=== PATIENT | female | born 1980 | race American Indian/Alaskan Native ===

== ENCOUNTER 2017-12-17 11:02 | Emergency (ER) | payer SELFPAY ==
--- NOTE | 2017-12-17 13:14 | Emergency Department Report ---
ED Laceration HPI - HPI Chief Complaint: Wound/Laceration Stated Complaint: RIGHT HAND LACERATION Time Seen by Provider: 12/17/17 12:37 Occurred When: Today Location: Upper Extremity (right hand) Severity: moderate Tetanus Status: Up to Date (11/2016 at [facility]) Laceration Symptoms: Yes Pain, No Foreign Body Sensation, No Numbness, No Weakness Other History: This is a 37 y.o. female that presents with laceration to right hand today. She was cutting chicken at home about 3 hours ago and cut hand. She washed with soap and water, then rinsed with peroxide. Reports getting a tetanus vaccine 11/2016 at [facility]. Denies numbness, tingling, swelling, or foreign object. ED Review of Systems ROS: Stated complaint: RIGHT HAND LACERATION Other details as noted in HPI Constitutional: denies: chills, fever Respiratory: denies: cough, shortness of breath, wheezing Cardiovascular: denies: chest pain, palpitations Gastrointestinal: denies: abdominal pain, nausea, diarrhea Musculoskeletal: denies: back pain, joint swelling, arthralgia Skin: other (laceration to right palm of hand). denies: rash, lesions Neurological: denies: headache, weakness, numbness, paresthesias ED Past Medical Hx - Past Medical History Hx Hypertension: Yes - Surgical History Past Surgical History?: No - Social History Smoking Status: Never Smoker Substance Use Type: None - Medications Home Medications: Home Medications Medication Instructions Recorded Confirmed Last Taken Type Sulfamethoxazole/Trimethoprim 1 each PO BID 10 Days #20 tablet 12/17/17 Unknown Rx [Bactrim DS TAB] Laceration Physical Exam - Exam General: Vital signs noted. No distress. Alert and acting appropriately. Wound Length (cm): 3 Laceration Location: Upper Extremity (right proximal hines region, no tendon/ vessel) Laceration Exam: Yes Normal Distal CMS, No Foreign Body, No Exposed Tendon, Vessel, or Nerve, No Tendon Injury ED Course Vital Signs 12/17/17 11:06 Temperature 99.1 F Pulse Rate 99 H Respiratory 16 Rate Blood Pressure 165/107 O2 Sat by Pulse 98 Oximetry - Laceration /Wound Repair Right Proximal Palm Hand Wound Location: upper extremity (right proximal palmar) Wound Length (cm): 3 Wound's Depth, Shape: superficial, linear Wound Explored: clean Irrigated w/ Saline (ccs): 10 Betadine Prep?: Yes Anesthesia: 1% Lidocaine Volume Anesthetic (ccs): 2 Wound Repaired With: sutures Suture Size/Type: 5:0 Number of Sutures: 5 Layer Closure?: No ED Medical Decision Making - Medical Decision Making This is a 37 y.o. female presents with laceration to proximal palmar region of right hand. She was cutting chicken at home and cut hand 3 hours ago. Patient examined by me. Physical exam findings of 3 cm superficial laceration, no tendon or vessel exposure. Patient is non-toxic appearing and stable. Sutures placed x 5. Review suture note. Discharged home for outpatient treatment with bactrim. Discussed ER care plan with patient. Patient agreed with plan. F/U with PCP or ER in 5-7 days for suture removal. Given instructions on suture care. Critical care attestation.: If time is entered above; I have spent that time in minutes in the direct care of this critically ill patient, excluding procedure time. ED Disposition Clinical Impression: Laceration Hypertension Qualifiers: Hypertension type: essential hypertension Qualified Code(s): I10 - Essential ( primary) hypertension Disposition: TO HOME OR SELFCARE Is pt being admited?: No Does the pt Need Aspirin: No Condition: Stable Instructions: Suture Care (ED), Laceration (ED), Hypertension (ED) Additional Instructions: Take bactrim DS antibiotic as prescribed for the full course. Avoid over use of right hand and prop arm up on pillows to decrease swelling. Follow up with Primary Care Provider in 24-72 hours. Have sutures removed in 5-7 days at primary care provider or ER. Return to ER if red, swollen, foul discharge, or fever. Prescriptions: Sulfamethoxazole/Trimethoprim [Bactrim DS TAB] 1 each PO BID 10 Days #20 tablet Referrals: [facility] [Outside] - 3-5 Days [facility] [Outside] - 3-5 Days [facility] [Outside] - 3-5 Days Time of Disposition: 13:57 Print Language: ROMANSH
[2017-12-17] MEDS ORDERED: XYLOCAINE 1% MPF 5 mL ONE (13:30)
[2017-12-17] MEDS ORDERED: XYLOCAINE 1% MPF 5 mL INFILTRATI ONE (13:57)
[2017-12-17 14:09] VITALS: BP 142/96
== END 2017-12-17 14:18 | disposition home or self-care (01) ==
LOC: ED 11:02
DX: S61.411A Laceration without foreign body of right hand, initial encounter (principal); I10 Essential (primary) hypertension; W45.8XXA Other foreign body or object entering through skin, initial encounter; Y93.89 Activity, other specified; Y92.098 Other place in other non-institutional residence as the place of occurrence of the external cause; Y99.8 Other external cause status
CPT/HCPCS: 99282

== ENCOUNTER 2017-12-21 10:20 | Emergency (ER) | payer SELFPAY ==
[2017-12-21 11:05] LABS: Basophils # (Auto) 0.1 K/mm3 (0.0-0.1); Basophils % (Auto) 0.4 % (0.0-1.8); Eosinophils # (Auto) 0.1 K/mm3 (0.0-0.4); Eosinophils % (Auto) 0.9 % (0.0-4.3); Hematocrit 43.8 % (30.3-42.9); Hemoglobin 14.6 gm/dl (10.1-14.3); Lymphocytes # (Auto) 1.5 K/mm3 (1.2-5.4); Lymphocytes % (Auto) 12.5 % (13.4-35.0); Mean Corpuscular HGB Conc 33 % (30-34); Mean Corpuscular Hemoglobin 28 pg (28-32); Mean Corpuscular Volume 83 fl (79-97); Monocytes # (Auto) 0.6 K/mm3 (0.0-0.8); Monocytes % (Auto) 4.6 % (0.0-7.3); Platelet Count 262 K/mm3 (140-440); Red Blood Count 5.27 M/mm3 (3.65-5.03); Red Cell Distribution Width 12.4 % (13.2-15.2)
[2017-12-21 11:15] LABS: Bilirubin,Urine NEG (Negative); Blood,Urine SM (Negative); Color,Urine Colorless (Yellow); Mucus,Urine FEW /HPF; Protein,Urine <15 mg/dL mg/dL (Negative); Urobilinogen,Urine < 2.0 mg/dL (<2.0)
[2017-12-21 11:27] LABS: BUN/Creatinine Ratio 14; Blood Urea Nitrogen 13 mg/dL (7-17); Calcium 9.5 mg/dL (8.4-10.2); Hemolysis Index 80
[2017-12-21] MEDS ORDERED: NACL 0.9% 1000 ML 1,000 ML ONE (11:31)
[2017-12-21] MEDS ORDERED: K-DUR PO ONE (11:33)
[2017-12-21] MEDS ORDERED: NACL 0.9% 1000 ML 1,000 ML IV ONE ×2 (11:33→13:22)
--- NOTE | 2017-12-21 14:26 | Emergency Department Report ---
HPI - General Chief Complaint: Hyperglycemia Time Seen by Provider: 12/21/17 11:29 - HPI HPI: The patient is a 37-year-old female with a history of diabetes whom presents for evaluation of lightheadedness. The patient reports severe lightheadedness for the past one day, exacerbated with exertion or ambulation, and improved with lying down and rest. She also reports associated dryness of mouth and polyuria. The patient denies fever, head injury, headache, neck pain, neck stiffness, vision or hearing changes, smell or taste changes, paresthesias, facial drooping, slurred speech, seizure-like activity, chest pain, dyspnea, urine or bowel incontinence or retention, or other focal neurological deficit. ED Past Medical Hx - Past Medical History Hx Hypertension: Yes Additional medical history: PCOS - Surgical History Past Surgical History?: No - Social History Smoking Status: Never Smoker Substance Use Type: None - Medications Home Medications: Home Medications Medication Instructions Recorded Confirmed Last Taken Type Sulfamethoxazole/Trimethoprim 1 each PO BID 10 Days #20 tablet 12/17/17 Unknown Rx [Bactrim DS TAB] ED Review of Systems ROS: Stated complaint: BLOOD SUGAR HIGH Other details as noted in HPI Constitutional: reports lightheadedness denies: fever ENT: denies: throat or neck pain Respiratory: denies: cough, shortness of breath Cardiovascular: denies: chest pain Endocrine: denies unexplained weight loss or gain Gastrointestinal: denies: abdominal pain, nausea Genitourinary: denies: dysuria Musculoskeletal: denies: leg swelling Skin: denies: rash Neurological: denies: headache Hematological/Lymphatic: denies: easy bleeding or easy bruising Psych: denies sadness or hopelessness Physical Exam - Physical Exam Vital Signs: Vital Signs 12/21/17 10:41 Temperature 99.4 F Pulse Rate 102 H Respiratory 20 Rate Blood Pressure 152/103 O2 Sat by Pulse 97 Oximetry Physical Exam: General: well-nourished, well-developed, no acute distress Head: Normocephalic, atraumatic Eyes: normal sclera ENT: Mucous membranes are pale and dry Neck: No neck stiffness, no cervical adenopathy Respiratory: Breath sounds equal bilaterally, no wheezing, rales, or rhonchi Cardio: S1 and S2 present, no murmurs, rubs, gallops, capillary refill is delayed Abdomen: Normoactive bowel sounds, soft abdomen, no rigidity, no guarding or rebound tenderness Chest WALL/Back: No tenderness to palpation of the chest wall, no CVA tenderness with percussion Musc: No pitting edema Skin: No rash Neuro: no facial drooping, normal speech Psych: Normal affect ED Course Vital Signs 12/21/17 10:41 Temperature 99.4 F Pulse Rate 102 H Respiratory 20 Rate Blood Pressure 152/103 O2 Sat by Pulse 97 Oximetry ED Medical Decision Making - Lab Data Result diagrams: 12/21/17 10:53 12/21/17 10:53 - Medical Decision Making \ The patient was seen and examined by myself. The patient is placed on a air sampling and monitoring and continuous pulse ox. On initial evaluation, the patient was found to be in no distress. Evaluation orders are placed. IV access is established and the patient is given 1 liter normal saline fluid bolus for treatment of her dehydration and hyperglycemia. Lab results exhibited elevated glucose of 600, with normal potassium level, joshua pH level, and bicarbonate level , not consistent with DKA. The patient is given multiple IV insulin boluses and an additional normal saline fluid bolus. On reevaluation the patient's found to have decrease in blood sugar from 600-200, and the patient is asymptomatic. The patient is stable for discharge with outpatient follow-up. The patient is given follow-up and return instructions. The patient expressed understanding and agreed with the plan. The patient is discharged in stable condition. Critical care attestation.: If time is entered above; I have spent that time in minutes in the direct care of this critically ill patient, excluding procedure time. ED Disposition Clinical Impression: Acute hyperglycemia, Dehydration, Orthostatic dizziness Disposition: - TO HOME OR SELFCARE Is pt being admited?: No Does the pt Need Aspirin: No Condition: Stable Instructions: Diabetic Hyperglycemia (ED), Dehydration (ED) Referrals: PRIMARY CARE, [Primary Care Provider] - 3-5 Days [facility] [Outside] - 3-5 Days Time of Disposition: 14:28
[2017-12-21 14:43] VITALS: BP 141/87
== END 2017-12-21 15:01 | disposition home or self-care (01) ==
LOC: ED 10:20
DX: E86.0 Dehydration (principal); E11.65 Type 2 diabetes mellitus with hyperglycemia; R42 Dizziness and giddiness; I10 Essential (primary) hypertension; E28.2 Polycystic ovarian syndrome
CPT/HCPCS: 36415; 80048; 81001; 82805; 82962; 85025; 96361; 96374; 96376; 99284; J7030; J1815

== ENCOUNTER 2017-12-22 19:44 | Emergency (ER) | payer SELFPAY ==
[2017-12-22 20:39] LABS: Basophils % (Auto) 0.4 % (0.0-1.8); Eosinophils # (Auto) 0.2 K/mm3 (0.0-0.4); Eosinophils % (Auto) 1.5 % (0.0-4.3); Hematocrit 42.3 % (30.3-42.9); Hemoglobin 14.1 gm/dl (10.1-14.3); Lymphocytes # (Auto) 3.4 K/mm3 (1.2-5.4); Lymphocytes % (Auto) 28.8 % (13.4-35.0); Mean Corpuscular HGB Conc 33 % (30-34); Mean Corpuscular Hemoglobin 28 pg (28-32); Mean Corpuscular Volume 84 fl (79-97); Monocytes # (Auto) 0.6 K/mm3 (0.0-0.8); Monocytes % (Auto) 4.9 % (0.0-7.3); Platelet Count 242 K/mm3 (140-440); Red Blood Count 5.06 M/mm3 (3.65-5.03); Red Cell Distribution Width 12.4 % (13.2-15.2)
[2017-12-22 20:50] LABS: BUN/Creatinine Ratio 19; Blood Urea Nitrogen 13 mg/dL (7-17); Calcium 9.1 mg/dL (8.4-10.2); Hemolysis Index 8
[2017-12-22] MEDS ORDERED: NACL 0.9% 1000 ML 1,000 ML IV ONE (23:03)
--- NOTE | 2017-12-22 23:30 | Emergency Department Report ---
HPI - General Chief Complaint: Arrhythmia/Palpitations Time Seen by Provider: 12/22/17 22:40 - HPI HPI: 37-year-old -[place] female recent diagnoses of diabetes, started metformin yesterday. Noticed she felt some mild palpitation today, that improve when she took her metoprolol. She had had these symptoms in the past. She states sometimes when she has palpitations that her potassium is low so she came to check on her potassium levels. ED Past Medical Hx - Past Medical History Hx Hypertension: Yes Hx Diabetes: Yes Additional medical history: PCOS - Surgical History Past Surgical History?: No - Social History Smoking Status: Never Smoker Substance Use Type: None - Medications Home Medications: Home Medications Medication Instructions Recorded Confirmed Last Taken Type Sulfamethoxazole/Trimethoprim 1 each PO BID 10 Days #20 tablet 12/17/17 Unknown Rx [Bactrim DS TAB] Klor-Con M20 20 meq PO DAILY 12/21/17 12/21/17 Unknown History Metoprolol 100 mg PO BID 12/21/17 12/21/17 Unknown History Metoprolol [Lopressor TAB] 100 mg PO BID #60 tablet 12/21/17 Unknown Rx Promethazine [Phenergan TAB] 25 mg PO Q6HR PRN #30 tab 12/22/17 Unknown Rx metFORMIN [Glucophage] 1,000 mg PO BID #60 tablet 12/22/17 Unknown Rx ED Review of Systems ROS: Stated complaint: PALPITATIONS Other details as noted in HPI Constitutional: no symptoms reported Cardiovascular: palpitations. denies: chest pain Endocrine: increased urine Gastrointestinal: nausea, vomiting Physical Exam - Physical Exam Vital Signs: Vital Signs 12/22/17 20:14 Temperature 99.6 F Pulse Rate 122 H Respiratory 16 Rate Blood Pressure 155/97 O2 Sat by Pulse 100 Oximetry Physical Exam: - Physical Exam Physical Exam: - General Limitations: No Limitations General appearance: alert, in no apparent distress, obese - Head Head exam: Present: atraumatic, normocephalic - Eye Eye exam: Present: normal appearance - ENT ENT exam: Present: mucous membranes moist - Neck Neck exam: Present: normal inspection - Respiratory Respiratory exam: Present: normal lung sounds bilaterally. Absent: respiratory distress - Cardiovascular Cardiovascular Exam: Present: normal rhythm, tachycardia. Absent: systolic murmur, diastolic murmur, rubs, gallop - GI/Abdominal GI/Abdominal exam: Present: soft, normal bowel sounds - Extremities Exam Extremities exam: Present: normal inspection - Back Exam Back exam: Present: normal inspection - Neurological Exam Neurological exam: Present: alert, oriented X3 - Psychiatric Psychiatric exam: normal affect and mood - Skin Skin exam: Present: warm, dry, intact, normal color. Absent: rash ED Course Vital Signs 12/22/17 20:14 Temperature 99.6 F Pulse Rate 122 H Respiratory 16 Rate Blood Pressure 155/97 O2 Sat by Pulse 100 Oximetry ED Medical Decision Making - Lab Data Result diagrams: 12/22/17 20:29 12/22/17 20:29 Critical care attestation.: If time is entered above; I have spent that time in minutes in the direct care of this critically ill patient, excluding procedure time. ED Disposition Clinical Impression: Acute hyperglycemia, Palpitations Disposition: DC-01 TO HOME OR SELFCARE Is pt being admited?: No Does the pt Need Aspirin: No Condition: Stable Prescriptions: metFORMIN [Glucophage] 1,000 mg PO BID #60 tablet Promethazine [Phenergan TAB] 25 mg PO Q6HR PRN #30 tab PRN Reason: Nausea Referrals: PRIMARY CARE, [Primary Care Provider] - 3-5 Days
[2017-12-23 01:48] VITALS: BP 123/79
== END 2017-12-23 01:52 | disposition home or self-care (01) ==
LOC: ED 19:44
DX: R00.2 Palpitations (principal); I10 Essential (primary) hypertension; E11.65 Type 2 diabetes mellitus with hyperglycemia
CPT/HCPCS: 36415; 80048; 82962; 84703; 85025; 93005; 93010; 96360; 99283; J7030

== ENCOUNTER 2018-03-13 22:19 | Emergency (ER) | payer SELFPAY ==
[2018-03-13 22:48] VITALS: BP 149/92
== END 2018-03-13 23:00 | disposition left against medical advice (07) ==
LOC: ED 22:19
DX: I10 Essential (primary) hypertension (principal); Z53.21 Procedure and treatment not carried out due to patient leaving prior to being seen by health care provider

== ENCOUNTER 2018-04-06 23:11 | Emergency (ER) | payer SELFPAY ==
[2018-04-07 00:47] VITALS: BP 139/97
== END 2018-04-07 00:30 | disposition left against medical advice (07) ==
LOC: ED 23:11
DX: R03.0 Elevated blood-pressure reading, without diagnosis of hypertension (principal); Z53.21 Procedure and treatment not carried out due to patient leaving prior to being seen by health care provider

== ENCOUNTER 2022-03-19 22:58 | Emergency (ER) | payer SELFPAY | END 2022-03-20 00:13 | disposition left against medical advice (07) | LOC: ED 22:58 | DX: Z76.0 Encounter for issue of repeat prescription (principal); Z53.21 Procedure and treatment not carried out due to patient leaving prior to being seen by health care provider ==